=== PATIENT | female | born 1975 ===

== ENCOUNTER 2017-03-08 11:16 | Observation (INO) | payer OTHER ==
[~2017-03-08] VITALS: Ht 167.6 cm; Wt 81.6 kg
[2017-03-08 11:55] LABS: Basophils # (auto) 0 uL; Eosinophils # (auto) 0 uL; Eosinophils % (auto) 0.1 % (0.0-7.0); Hemoglobin 15.1 g/dL (12.2-16.2); Lymphocytes # (auto) 0.7 uL; Lymphocytes % (auto) 6.4 % (10.0-50.0); Mean Corpuscular Hemoglobin 30.7 pg (28.0-32.0); Mean Corpuscular Hgb Conc. 34.3 g/dL (32.0-36.0); Mean Corpuscular Volume 89.3 fL (80.0-100.0); Mean Platelet Volume 10.7 fL (7.4-10.4); Monocytes # (auto) 0.3 uL; Monocytes % (auto) 2.6 % (0.0-12.0); Neutrophils # (auto) 9.8 uL; Neutrophils % (auto) 90.9 % (37.0-80.0); Platelet Count (auto) 200 10^3/uL (140-450); Red Cell Distribution Width 13.1 % (11.6-16.0); SUSPECT VIEW TRANSMISSION; White Blood Cell 10.8 10^3/uL (4.4-10.8)
[2017-03-08 12:00] LABS: Urine RBC None Seen /hpf (0 - 4)
[2017-03-08 12:13] LABS: Urine Bilirubin Negative (Negative); Urine Blood Negative /uL (Negative); Urine Color Yellow (Yellow); Urine Glucose Normal (Normal); Urine Ketone Negative (Negative); Urine Nitrite Negative (Negative); Urine Squamous Epithelial Cell FEW /hpf (<5); Urine Urobilinogen Normal (Negative)
[2017-03-08 12:21] LABS: Albumin 4.2 g/dL (3.4-5.0); Alkaline Phosphatase 41 U/L (45-117); Anion Gap 10 (5-15); Aspartate Aminotransferase 52 U/L (15-37); BUN/Creatinine Ratio 12.2; Bilirubin, Total 0.6 mg/dL (0.2-1.0); Blood Urea Nitrogen 11 mg/dL (7-18); Calcium 9.1 mg/dL (8.5-10.1); Carbon Dioxide 24 mmol/L (21-32); Chloride 104 mmol/L (98-107); GFR African American 88 mL/min; GFR Non-African American 73 mL/min; Glucose 127 mg/dL (74-106); Potassium 3.7 mmol/L (3.5-5.1); Sodium 138 mmol/L (136-145); Total Protein 7.5 g/dL (6.4-8.2)
[2017-03-08] MEDS ORDERED: ONDANSETRON HCL 4 MG/2 ML VIAL IV ONE (13:30)
[2017-03-08] MEDS ORDERED: ASPirin 81 mg TAB PO ONE (13:30)
[2017-03-08 13:52] LABS: INR 0.95 (0.9-1.15)
[2017-03-08 14:02] LABS: B-Type Natriuretic Peptide 6.12 pg/mL (0-100)
[2017-03-08 15:39] VITALS: BP 115/66
== END 2017-03-08 17:11 | disposition home or self-care (01) | DRG 313 ==
LOC: EDSEX 11:16 → ER 11:16 → OVERFLOW 13:23 → ER 17:06
PROVIDERS: ADMIT Family Medicine; ATTEND Family Medicine
DX: R07.2 Precordial pain (principal); R79.89 Other specified abnormal findings of blood chemistry; Z83.3 Family history of diabetes mellitus; Z82.49 Family history of ischemic heart disease and other diseases of the circulatory system
CPT/HCPCS: 36415; 71020; 80053; 80320; 81001; 81025; 83735; 83880; 84443; 84484; 85025; 85379; 85610; 85730; 93005; 96374; 99285; G0378; J2405